=== PATIENT | female | born 1955 ===

== ENCOUNTER 2021-08-20 06:20 | Day surgery (SDC) | payer OTHER ==
[~2021-08-20 06:20] MED LIST: CLONAZEPAM0.5 MG; PREVACID30 MG; TENORMIN25 MG
[2021-08-20] MEDS ORDERED: TYLENOL325 MG PO (09:57)
== END 2021-08-20 14:15 | disposition home or self-care (01) ==
LOC: CIR.AMB 06:20
PROVIDERS: ATTEND Obstetrics & Gynecology Gynecology
DX: N84.0 Polyp of corpus uteri (principal); N84.1 Polyp of cervix uteri; Z20.822 Contact with and (suspected) exposure to COVID-19